=== PATIENT | male | born 1970 | race Caucasian/White ===

== ENCOUNTER 2022-01-20 18:01 | Emergency (ER) | payer OTHER ==
[~2022-01-20 18:01] MED LIST: FLEXERIL 10 MG10 MG PO; LODINE CAP 300300 MG PO; VIBRAMYCIN100 MG PO
[2022-01-20 18:39] LABS: HEMOGLOBIN 16.4 gm/dl (14.0-17.5); RED BLOOD COUNT 5.03 M/UL (4.20-5.50); WHITE BLOOD COUNT 7.9 K/UL (4.5-11.0)
[2022-01-20 19:05] LABS: BUN/CREATININE RATIO 11 (0-10)
[2022-01-20] MEDS ORDERED: PROTONIX20 MG PO (21:42)
== END 2022-01-20 22:17 | disposition home or self-care (01) ==
LOC: ER1 18:01
PROVIDERS: Nurse Practitioner
DX: R10.9 Unspecified abdominal pain (principal); R11.2 Nausea with vomiting, unspecified; R10.817 Generalized abdominal tenderness; G43.909 Migraine, unspecified, not intractable, without status migrainosus; Z88.0 Allergy status to penicillin; F17.210 Nicotine dependence, cigarettes, uncomplicated; Z79.899 Other long term (current) drug therapy
CPT/HCPCS: 80053; 82150; 82550; 82553; 83605; 83690; 84484; 85025; 93005; 96374; 96375; 99284; J2405; J2550; Q9967

== ENCOUNTER → 2022-02-01 | Day surgery (SDC) | payer OTHER ==
[~2022-02-01] MED LIST changes: +IMITREX100 MG PO; +PROTONIX20 MG PO
== END | disposition home or self-care (01) ==
LOC: OR 07:44
DX: R10.13 Epigastric pain (principal); R11.2 Nausea with vomiting, unspecified; Z72.0 Tobacco use; Z88.0 Allergy status to penicillin; Z53.29 Procedure and treatment not carried out because of patient's decision for other reasons
CPT/HCPCS: J7040

== ENCOUNTER → 2022-02-02 | Outpatient (CLI) | payer OTHER | LOC: EXRD 13:08 | DX: M54.50 Low back pain, unspecified (principal); M47.816 Spondylosis without myelopathy or radiculopathy, lumbar region | CPT/HCPCS: 72100 ==

== ENCOUNTER 2022-03-01 22:07 | Emergency (ER) | payer OTHER ==
[2022-03-01] MEDS ORDERED: ZOFRAN ODT 4 MG4 MG PO (23:34)
== END 2022-03-01 23:47 | disposition home or self-care (01) ==
LOC: ER1 22:07
DX: F41.9 Anxiety disorder, unspecified (principal); R11.0 Nausea; K21.9 Gastro-esophageal reflux disease without esophagitis; F17.200 Nicotine dependence, unspecified, uncomplicated; Z88.0 Allergy status to penicillin
CPT/HCPCS: 99283